=== PATIENT | female | born 1965 | race Caucasian/White ===

== ENCOUNTER 2024-05-02 13:03 | Day surgery (SDC) | payer OTHER ==
[~2024-05-02] VITALS: Ht 162.6 cm; Wt 89.2 kg
[~2024-05-02 13:03] MED LIST: ALBU90OI; ALBU90OI INH; AZIT250 PO; Balanced Salt Epinephrine Irrigation Solution 500 mL IR SCH; CODGUAEL PO; CRUTCH4 USE; DOXY100 PO; Diazepam 2 MG Tab PO PRN; Diazepam 5 MG Tab PO PRN; Diazepam 5 MG Tab PO SCH; HYDACE5 PO; Lidocaine HCl/Pf 1% 5 ML VIAL XX SCH; Moxifloxacin HCL 0.5 MG/0.1 ML 0.4MLSYR LEFTEYE SCH; Ondansetron 4 MG SoluTab MM PRN; PHENYLEPHRINE\\TROPICAMIDE\\TETRACAINE OPHTHALMIC DILATING SOLN LEFTEYE PRN; PRED10 PO; PRED20 PO; PROCODE120 PO; PROM25 PO; Povidone-Iodine 450 DROP/30 ML Solution LEFTEYE SCH; Povidone-Iodine 450 DROP/30 ML Solution ONE; Tetracaine HCl/Pf 0.5% Opth Soln 4 ml ONE; Triamcinolone Inj Susp 40 MG / ML 1ML Vial INJ SCH; Triamcinolone Inj Susp 40 MG / ML 1ML Vial ONE; diazePAM 2 MG,diazePAM 5 MG PO SCH
[2024-05-02] MEDS ORDERED: Diazepam 5 MG Tab ONE ×2 (13:50→14:02)
--- NOTE | 2024-05-02 14:25 | NUR ---
05/02/24 1425 Abigail Hitchcock TWO TABLETS OF 5 MG VALIUM PULLED FROM PYXIS, ONE TABLET FELL ON THE FLOOR AND HAD TO BE WASTED SO A THIRD TABLET OF 5 MG VALIUM PULLED FROM PYXIS. WASTED TABLET WAS WASTED WITH RN. IZABEL 1406: ANXIETY 0/10 PER PATIENT 1407: 10 MG PO VALIUM GIVEN PER ORDERS
[2024-05-02] MEDS ORDERED: Triamcinolone Inj Susp 40 MG / ML 1ML Vial ONE (15:00)
[2024-05-02 15:11] VITALS: BP 138/82
--- NOTE | 2024-05-02 15:15 | NUR ---
05/02/[address] IN TO SEE PT
== END 2024-05-02 15:40 | disposition home or self-care (01) ==
LOC: ORSCSDS 13:03
PROVIDERS: Ophthalmology
PROC: 08RK3JZ Replacement of Left Lens with Synthetic Substitute, Percutaneous Approach (ICD-10-PCS; principal; 2024-05-02 14:30)
DX: H25.813 Combined forms of age-related cataract, bilateral (principal); F41.9 Anxiety disorder, unspecified; F32.A Depression, unspecified; J45.909 Unspecified asthma, uncomplicated; E66.9 Obesity, unspecified; Z68.33 Body mass index [BMI] 33.0-33.9, adult; Z79.899 Other long term (current) drug therapy
CPT/HCPCS: A9270; J3301; V2632

== ENCOUNTER 2024-05-10 06:20 | Day surgery (SDC) | payer OTHER ==
[~2024-05-10] VITALS: Ht 162.6 cm; Wt 90.9 kg
[~2024-05-10 06:20] MED LIST changes: -Diazepam 2 MG Tab PO PRN; -Moxifloxacin HCL 0.5 MG/0.1 ML 0.4MLSYR LEFTEYE SCH; +Moxifloxacin HCL 0.5 MG/0.1 ML 0.4MLSYR RIGHTEYE SCH; -PHENYLEPHRINE\\TROPICAMIDE\\TETRACAINE OPHTHALMIC DILATING SOLN LEFTEYE PRN; +PHENYLEPHRINE\\TROPICAMIDE\\TETRACAINE OPHTHALMIC DILATING SOLN RIGHTEYE PRN; -Povidone-Iodine 450 DROP/30 ML Solution LEFTEYE SCH; +Povidone-Iodine 450 DROP/30 ML Solution RIGHTEYE SCH; -Triamcinolone Inj Susp 40 MG / ML 1ML Vial ONE; -diazePAM 2 MG,diazePAM 5 MG PO SCH
[2024-05-10] MEDS ORDERED: Lidocaine HCl/Pf 1% 5 ML VIAL ONE (06:31)
[2024-05-10] MEDS ORDERED: Triamcinolone Inj Susp 40 MG / ML 1ML Vial ONE (06:31)
[2024-05-10] MEDS ORDERED: Midazolam HCl 1MG / ML 2ML Vial ONE (07:25)
[2024-05-10 07:52] VITALS: BP 136/88
--- NOTE | 2024-05-10 08:13 | NUR ---
05/10/24 0813 Thelma Wood D/Huber INSTRUCTIONS GIVEN TO PT, UNDERSTANDING VERBALIZED. PT HAS ALL BELONGINGS, INCLUDING EYE KIT. PT DENIES PAIN/NAUSEA, TOLERATING COFFEE W/O COMPLAINT. VSS, ON RA. STEADY GAIT NOTED. NO VISIBLE SIGNS OF DISTRESS NOTED.
== END 2024-05-10 08:10 | disposition home or self-care (01) ==
LOC: ORSCSDS 06:20
PROVIDERS: Ophthalmology
PROC: 08RJ3JZ Replacement of Right Lens with Synthetic Substitute, Percutaneous Approach (ICD-10-PCS; principal; 2024-05-10 07:30)
DX: H25.811 Combined forms of age-related cataract, right eye (principal); F41.9 Anxiety disorder, unspecified; F32.A Depression, unspecified; J45.909 Unspecified asthma, uncomplicated; Z96.1 Presence of intraocular lens; Z79.899 Other long term (current) drug therapy
CPT/HCPCS: J2003; J2250; J3301; V2632

== ENCOUNTER 2024-06-28 09:04 | Emergency (ER) | payer OTHER ==
[~2024-06-28] VITALS: Ht 162.6 cm; Wt 90.7 kg
[~2024-06-28 09:04] MED LIST changes: -Balanced Salt Epinephrine Irrigation Solution 500 mL IR SCH; -Diazepam 5 MG Tab PO PRN; -Diazepam 5 MG Tab PO SCH; -Lidocaine HCl/Pf 1% 5 ML VIAL XX SCH; -Moxifloxacin HCL 0.5 MG/0.1 ML 0.4MLSYR RIGHTEYE SCH; -Ondansetron 4 MG SoluTab MM PRN; -PHENYLEPHRINE\\TROPICAMIDE\\TETRACAINE OPHTHALMIC DILATING SOLN RIGHTEYE PRN; -Povidone-Iodine 450 DROP/30 ML Solution ONE; -Povidone-Iodine 450 DROP/30 ML Solution RIGHTEYE SCH; -Tetracaine HCl/Pf 0.5% Opth Soln 4 ml ONE; -Triamcinolone Inj Susp 40 MG / ML 1ML Vial INJ SCH
[2024-06-28 10:44] VITALS: BP 153/88
== END 2024-06-28 11:03 | disposition home or self-care (01) ==
LOC: ER 09:04
DX: M25.562 Pain in left knee (principal); I10 Essential (primary) hypertension; J45.909 Unspecified asthma, uncomplicated; Z88.0 Allergy status to penicillin; Z79.899 Other long term (current) drug therapy
CPT/HCPCS: 73562-LT; 93926; 99284-25

== ENCOUNTER 2024-07-05 19:25 | Emergency (ER) | payer OTHER ==
[~2024-07-05] VITALS: Ht 162.6 cm; Wt 93.9 kg
[2024-07-05 20:08] LABS: BASOPHILS ABSOLUTE AUTO 0.09 K/mm3 (0.00-0.23); BASOPHILS PERCENT AUTO 1 % (0-2); EOSINOPHILS ABSOLUTE AUTO 0.97 K/mm3 (0.00-0.68); EOSINOPHILS PERCENT AUTO 12 % (0-6); Hematocrit 38.7 % (33.0-51.0); Hemoglobin 12.8 g/dL (11.5-16.0); IMMATURE GRAN ABSOLUTE AUTO 0.02 K/mm3 (0.00-0.10); IMMATURE GRAN PERCENT AUTO 0 % (0-1); LYMPHOCYTES ABSOLUTE AUTO 1.93 K/mm3 (0.84-5.20); LYMPHOCYTES PERCENT AUTO 25 % (21-46); MONOCYTES ABSOLUTE AUTO 0.41 K/mm3 (0.16-1.47); MONOCYTES PERCENT AUTO 5 % (4-13); Mean Corpuscular HGB 26.1 pg (26.0-34.0); Mean Corpuscular HGB Conc 33.1 g/dL (31.5-36.5); Mean Corpuscular Volume 79 fL (80-100); Mean Platelet Volume 9.1 fL (9.1-12.4); NEUTROPHILS ABSOLUTE AUTO 4.43 K/mm3 (1.96-9.15); NEUTROPHILS PERCENT AUTO 56 % (41-73); Platelet Count 356 K/mm3 (150-400); RDW Coefficient Variation 13.9 % (11.7-14.2); RDW Standard Deviation 39.9 fL (35.1-46.3); White Blood Cell Count 7.85 K/mm3 (4.00-11.30)
[2024-07-05 20:38] LABS: Albumin, Blood 3.4 g/dL (3.4-5.0); Albumin/Globulin Ratio 0.9 (0.8-1.8); Bilirubin, Total 0.2 mg/dL (0.1-1.0); Bun/Creatinine Ratio 20.4 (12.0-20.0); Calcium, Blood 8.8 mg/dL (8.5-10.1); Creatinine, Blood 0.83 mg/dL (0.40-1.00); Globulin, Blood 3.9 g/dL (2.2-4.0); Potassium, Blood 3.3 mmol/L (3.5-5.5); Total Protein, Blood 7.3 g/dL (6.4-8.2)
[2024-07-05] MEDS ORDERED: Mag Sulfate 1 GM/D5% 100ML 100 ML IV ONE (22:00)
[2024-07-05] MEDS ORDERED: MethylPREDNISolone Sod Succ 125 MG Vial IV ONE (22:00)
[2024-07-05] MEDS ORDERED: Ipratropium/Albuterol SulF 2.5-0.5MG/3 ML Amp INH ONE (22:00)
[2024-07-05] MEDS ORDERED: RX Prepack Albuterol 1 PREPACK/6.7 GM INH UD ONE (22:55)
[2024-07-05] MEDS ORDERED: PRED20 PO (22:55)
[2024-07-05 23:00] VITALS: BP 177/88
== END 2024-07-05 23:00 | disposition home or self-care (01) ==
LOC: ER 19:25
PROVIDERS: Emergency Medicine
DX: J45.901 Unspecified asthma with (acute) exacerbation (principal); Z88.0 Allergy status to penicillin
CPT/HCPCS: 36415; 71046; 80053; 84484; 85025; 93005; 93010; 94640; 94664; 96365; 96375; 99285-25; A9270; J2919; J3475